=== PATIENT | female | born 1930 | race Caucasian/White ===

== ENCOUNTER 2019-05-05 04:44 | Inpatient (IN) | payer MEDICARE ==
[2019-05-05] VITALS (37 sets, daily range): BP systolic 105–164; BP diastolic 44–97
[~2019-05-05] VITALS: Ht 154.9 cm; Wt 58.1 kg
--- NOTE | 2019-05-05 04:55 | NUR ---
PT BIBDAUGHTER. PT C/O WEAKNESS X3 DAYS, PROGRESSIVELY GETTING WORSE AND FEELING SOB. -CP, -N/V, -HEADACHE. PT PLACED ON CONTINIOUS SUPERVISOR ENDLESS TRACK VEHICLE AND PULSE OX. UPON ASSESSMENT PT APPEARS WEAK AND IN DISTRESS. MD AT BEDSIDE FOR EVAL.
[2019-05-05] MEDS ORDERED: ADENOSINE 6 MG/2 ML VIAL ONE (05:03)
[2019-05-05] MEDS ORDERED: DILTIAZEM HCL 25 MG IV ONE (05:07)
[2019-05-05 05:11] LABS: BASOPHILS # (AUTO) 0.1 /CMM (0.0-0.2); BASOPHILS % (AUTO) 0.6 % (0.0-2.0); EOSINOPHILS % (AUTO) 2.3 % (0.0-6.0); HEMATOCRIT 35 % (33-45); HEMOGLOBIN 11.3 g/dL (11.5-14.8); LYMPHOCYTES # (AUTO) 2.3 /CMM (0.8-4.8); LYMPHOCYTES % (AUTO) 21.9 % (20.0-44.0); MEAN CORPUSCULAR HGB CONC 32 g/dl (31.0-36.0); MEAN CORPUSCULAR VOLUME 96 fL (82-100); MONOCYTES # (AUTO) 1.1 /CMM (0.1-1.30); MONOCYTES % (AUTO) 10.1 % (2.0-12.0); NEUTROPHILS # (AUTO) 6.8 /CMM (1.8-8.9); NEUTROPHILS % (AUTO) 65.1 % (43.0-81.0); PLATELET COUNT (AUTO) 239 /CMM (150-450); RED BLOOD CELL COUNT(AUTO) 3.64 MIL/uL (4.0-5.2); WHITE BLOOD COUNT (AUTO) 10.5 K/uL (4.3-11.0)
--- NOTE | 2019-05-05 05:11 | NUR ---
x. ray tech at the bed side
[2019-05-05 05:20] LABS: CALCIUM, SERUM 8.6 mg/dL (8.5-10.1); CARBON DIOXIDE 19 mmol/L (21-32); CHLORIDE 108 mmol/L (98-107); CREATININE 1.9 mg/dL (0.6-1.3); GLUCOSE 282 mg/dL (74-106); POTASSIUM 4.9 mmol/L (3.5-5.1); SODIUM SERUM 140 mmol/L (136-145); UREA NITROGEN, BLOOD 37 mg/dL (7-18)
[2019-05-05] MEDS ORDERED: ATEN25TA PO (05:22)
[2019-05-05] MEDS ORDERED: LEVO75TA7 PO (05:22)
[2019-05-05] MEDS ORDERED: GLIP5TAB13 PO (05:22)
[2019-05-05] MEDS ORDERED: WARF3TAB59 PO (05:22)
[2019-05-05] MEDS ORDERED: METF-440 PO (05:22)
[2019-05-05] MEDS ORDERED: LOSA100T31 PO (05:22)
[2019-05-05] MEDS ORDERED: SIMV-49 PO (05:22)
[2019-05-05] MEDS ORDERED: SITA50TA PO (05:22)
[2019-05-05] MEDS ORDERED: MIRT15TA PO (05:22)
[2019-05-05] MEDS ORDERED: PRED1TAB PO (05:22)
[2019-05-05] MEDS ORDERED: DILTIAZEM HCL 50 MG IV IV ONE (05:30)
[2019-05-05] MEDS ORDERED: DILTIAZEM HCL IV 125 MG in IV NS 0.9% 100 ML IV PRN (05:30)
[2019-05-05] MEDS ORDERED: IV NS 0.9% 1,000 ML BAG IV ONE (05:30)
[2019-05-05] MEDS ORDERED: ADENOSINE 6 MG/2 ML VIAL IVP ONE (05:30)
[2019-05-05 05:37] LABS: ALANINE AMINOTRANSFERASE 75 U/L (12-78); ALBUMIN 3.2 g/dL (3.4-5.0); ALKALINE PHOSPHATASE 65 U/L (46-116); ASPARTATE AMINOTRANSFERASE 43 U/L (15-37); B-TYPE NATRIURETIC PEPTIDE 5086 PG/ML (0-125); BILIRUBIN,DIRECT 0.1 mg/dL (0.0-0.2); BILIRUBIN,TOTAL 0.3 mg/dL (0.2-1.0); TOTAL PROTEIN, SERUM 6.4 g/dL (6.4-8.2)
--- NOTE | 2019-05-05 05:50 | NUR ---
URINE COLLECTED AND SENT TO THE LAB
[2019-05-05 05:51] LABS: APPEARANCE,URINE Clear (CLEAR); BILIRUBIN,URINE Negative (NEGATIVE); BLOOD, URINE Small Ery/uL (NEGATIVE); COLOR,URINE Yellow (YELLOW); KETONES,URINE Negative (NEGATIVE); LEUKOCYTE ESTERASE ,URINE Negative (NEGATIVE); NITRITE, URINE Negative (NEGATIVE); PH,URINE 5.5 (5.0-8.0); PROTEIN,URINE 100 mg/dl (NEGATIVE); UGLUCOSE 250 MG/DL mg/dL (NEGATIVE)
[2019-05-05 05:58] LABS: BACTERIA,URINE Few /HPF (None Seen); WBC,URINE 0-2 /HPF (0-3)
--- NOTE | 2019-05-05 06:09 | NUR ---
BED ASSIGNMENT 117-2
--- NOTE | 2019-05-05 06:15 | NUR ---
REPORT GIVEN TO KLARISSA OROURKE FOR RICKY
--- NOTE | 2019-05-05 06:38 | NUR ---
PT TRANSFERED TO REGULO FOR RICKY UNDER ACLS PROTOCOL.
--- NOTE | 2019-05-05 06:40 | NUR ---
0640 ADMITTED FROM ER 88 YEAR OLD FEMALE VIA BRADY, KIRIT X 2 . ON O2 AT 2 LPM VIA NC. ASSISTED TO REGULO BED AND CONNECTED TO HEART MONITOR, NSR NOTED WITH HR IN THE 80S. ADMISSION CARE RENDERED. VITAL SIGNS TAKEN AND RECORDED. PATIENT DENIES PAIN WHEN ASKED. DAUGHTER MANE TAYLOR AT BEDSIDE AND PROVIDED CONTACT NUMBER [phone]. KEPT PATIENT CLEAN AND DRY. CALL LIGHT PLACED WITHIN REACH AND INSTRUCTED TO CALL FOR ASSISTANCE.
--- NOTE | 2019-05-05 07:30 | NUR ---
RN OPENING NOTES RECEIVED PATIENT ASLEEP, EASILY AROUSABLE. ON TELE MONITOR, SR AT 80s. AT 0730, COAT ROOM ATTENDANT REPORTED THAT PATIENT ON SVT AT 180s. WENT TO PATIENT'S ROOM. PATIENT TRYING TO GET UP AND WAS FRANTIC ABOUT WHAT IS HAPPENING AND WHERE SHE IS. TRIED TO CALM PATIENT DOWN BUT PATIENT SEEMS TO HAVE HARD OF HEARING AND TRYING TO READ LIPS. CALLED MANE, PATIENT'S DAUGHTER, SHE TALKED TO THE PATIENT AND WAS TOLD TO DO EVERYTHING WE HAVE TO DO FOR HER, SUCH CHECKING VS. PATIENT AGREED. VS CHECKED. PATIENT AWARE OF HER SURROUNDINGS, TURNED TV ON. CALL LIGHT WITHIN REACH. PER COAT ROOM ATTENDANT, PATIENT IS CURRENTLY AFIB AT 132. DR MCCALL MADE AWARE, NNO AT THIS TIME. BED LOCKED AND IN LOWEST POSITION. WILL CONTINUE TO MONITOR CLOSELY FOR RICKY
--- NOTE | 2019-05-05 08:30 | NUR ---
RN NOTE PATIENT REMOVED HER IV SITE. WILL REINSERT ANOTHER ONE
[2019-05-05] MEDS ORDERED: Z GUARD REMEDY 2 OZ OINT TP PRN (09:00)
[2019-05-05] MEDS ORDERED: METFORMIN 500 MG TABLET PO SCH (09:00)
[2019-05-05] MEDS ORDERED: MAG HYDROX/AL HYDROX/SIMETH 30 ML UDC PO PRN (09:00)
[2019-05-05] MEDS ORDERED: LOSARTAN POTASSIUM 50 MG TABLET PO SCH (09:00)
[2019-05-05] MEDS ORDERED: ATENOLOL 25 MG TABLET PO SCH (09:00)
[2019-05-05] MEDS ORDERED: HYDROCODONE/APAP 5/325MG 1 EACH TABLET PO PRN (09:00)
[2019-05-05] MEDS ORDERED: ACETAMINOPHEN 325 MG TABLET PO PRN (09:00)
[2019-05-05] MEDS ORDERED: LEVOTHYROXINE SODIUM 75 MCG TABLET PO SCH (09:00)
[2019-05-05] MEDS ORDERED: MAGNESIUM HYDROXIDE 30 ML UDC PO PRN (09:00)
[2019-05-05] MEDS ORDERED: Medication Not On Formulary EA (Warfarin Sodium 3 MG) PO SCH (09:00)
[2019-05-05] MEDS ORDERED: ZOLPIDEM TARTRATE 5 MG TABLET PO PRN (09:00)
[2019-05-05] MEDS ORDERED: DEXTROSE 50%-WATER 50 ML DISP.SYRIN IV PRN (09:00)
[2019-05-05] MEDS ORDERED: ONDANSETRON HCL/PF 4 MG/2 ML VIAL IVP PRN (09:00)
[2019-05-05] MEDS: LINAGLIPTIN 5 MG TABLET PO SCH (09:39)
[2019-05-05] MEDS: glipiZIDE 5 MG TABLET PO SCH (09:39)
[2019-05-05] MEDS: IV NS 0.9% 1,000 ML IV PRN (09:39)
[2019-05-05] MEDS: predniSONE 1 MG TABLET PO SCH (09:40)
--- NOTE | 2019-05-05 10:02 | NUR ---
RN NOTE DAUGHTER MANE AT BEDSIDE, ADVANCE DIRECTIVES GIVEN, PLACED IN CHART. PATIENT'S CODE STATUS IS DNR/DNI. DR MCCALL MADE AWARE. PER DR LUNDBERG, GET ALL COPIES OF RECENT EKG AND NOTES FROM THE PATIENT'S PERSONAL [facility] CONSULTANT - DR GONZALES. CALLED AND FAXED OVER THE REQUEST FORM SIGNED BY DAUGHTER.
--- NOTE | 2019-05-05 10:20 | NUR ---
RN NOTE PER DR LUNDBERG, HE ORDERED CARDIZEM DRIP FOR PATIENT. EKG RESULTS RELAYED TO MD WELL.
--- NOTE | 2019-05-05 11:00 | NUR ---
RN NOTES RECEIVED PT ON BED IN ROOM 117-2, AND TRANSFERRED TO ICU ROOM 261 TO HAVE XANDER GTT PER AD CLERK ORDER , PT IS A/Ox1-2, CONFUSED AT TIMES, ON TELE A.FIB HR IN 130'S , R UPPER ARM IV G 20 AND L WIRST IV G 22 INSERTED, SUPPORTIVE DAUGHTER AT THE BEDSIDE, SR UP X3, CALL LIGHT WITHIN EASY REACH, BED LOCKED AND IN LOWEST POSITION, CONTINUE TO MONITOR.
--- NOTE | 2019-05-05 11:30 | NUR ---
RN NOTE PATIENT TRANSFERRED TO ICU VIA ACLS. VSS, HR ELEVATED - 130s. PATIENT WILL BE ON CARDIZEM DRIP TITRATION PER DR LUNDBERG. REPORT GIVEN TO VIDA MALDONADO FOR RICKY. DAUGHTER AWARE, AT BEDSIDE. NEW IV SITE ON RIGHT AC. DR MCCALL AWARE OF THE TRANSFER
[2019-05-05] MEDS: DILTIAZEM HCL IV 125 MG in IV D5W 100 ML IV PRN (12:20)
[2019-05-05] MEDS: BLOOD SUGAR DIAGNOSTIC 1 EACH STRIP IN SCH ×3 (12:23→22:57)
[2019-05-05] MEDS: INSULIN REGULAR, HUMAN 100 UNIT/ML 3 ML VIAL SQ PRN ×2 (12:23→17:51)
[2019-05-05] MEDS ORDERED: HEPARIN SODIUM, PORCINE 5000 UNITS/1 ML VIAL SQ SCH (12:30)
[2019-05-05] MEDS ORDERED: TEMAZEPAM 7.5 MG CAPSULE PO PRN (13:00)
[2019-05-05] MEDS ORDERED: LEVOTHYROXINE INJ 100 MCG VIAL IV ONE (13:00)
[2019-05-05] MEDS: METHIMAZOLE (5MG) 5 MG TABLET PO SCH ×2 (13:14→21:46)
[2019-05-05] MEDS: PROPRANOLOL HCL 40 MG TABLET PO SCH ×2 (14:16→21:46)
--- NOTE | 2019-05-05 15:53 | NUR ---
RN NOTES PT STABLE, HR IN 90'S . A.FIB, FAMILY AT THE BEDSIDE, CONTINUE TO MONITOR .
--- NOTE | 2019-05-05 18:00 | NUR ---
RN NOTES PT IS CONFUSED AND AGITATED, PULLING ON HER IV LINES AND TRIES TO GET OUT OF THE BED , PT REORIENTED TO ROOM AND SURROUNDING, PT STILL AGITATED , TAYLOR CARBONIZER TESTER NOTIFIED , ORDER RECEIVED TO APPLY YOSEF SOFT RESTRAINS FOR PT SAFETY AND SEROQUEL 25x1 PO . CONTINUE TO MONITOR .
[2019-05-05] MEDS ORDERED: QUETIAPINE FUMARATE 25 MG TABLET PO STA (18:11)
--- NOTE | 2019-05-05 18:45 | NUR ---
RN NOTES PT AT REST AT THIS TIME, DAUGHTER AT THE BEDSIDE. HR IN 80' A.FIB. SR UP x3, CALL LIGHT WITHIN EASY REACH, WILL ENDORSE TO JAMB CUTTER NURSE FOR CONTINUITY OF CARE .
--- NOTE | 2019-05-05 19:30 | NUR ---
RN NOTES RECEIVED PATIENT AWAKE ON BED CALM AND SMILING . LOOKING FOR HER DAUGHTER MANE AND WANTED TO GET UP. EDUCATE PATIENT ABOUT THE TIME AND SURROUNDING. PATIENT IS AOX2 WITH CONFUSION. WITH O2 2LPM VIA NC BUT REMOVED AND DOESN'T WANT TO PUT IT BACK ON HER NOSE. SATURATION 97% IN ROOM AIR. DENIES PAIN. DENIES CHEST PAIN. AFEBRILE. A- FIB ON TELE MONITOR. WITH IV ON ERICA G 20 RUNNING WITH CARDIZEM @ 5 MG/HR. VSS. LEFT HAND G 22 INTACT AND PATENT. BED LOCKED AND SECURED. SAFETY MEASURES PROVIDED. BED ALARM ON. CALL LIGHT KEPT WITHIN EASY REACH WILL CONTINUE TO MONITOR.
[2019-05-05] MEDS: ATORVASTATIN 10 MG TABLET PO SCH (21:46)
[2019-05-05] MEDS: MIRTAZAPINE 15 MG TABLET PO SCH (21:47)
[2019-05-05] MEDS ORDERED: SIMVASTATIN 40 MG TABLET PO SCH (22:00)
[2019-05-06] VITALS (42 sets, daily range): BP systolic 89–172; BP diastolic 31–97
[2019-05-06 04:32] LABS: BASOPHILS % (AUTO) 0.6 % (0.0-2.0); EOSINOPHILS % (AUTO) 4.2 % (0.0-6.0); HEMATOCRIT 30 % (33-45); HEMOGLOBIN 9.8 g/dL (11.5-14.8); LYMPHOCYTES # (AUTO) 1.1 /CMM (0.8-4.8); LYMPHOCYTES % (AUTO) 20.1 % (20.0-44.0); MEAN CORPUSCULAR HGB CONC 33 g/dl (31.0-36.0); MEAN CORPUSCULAR VOLUME 94 fL (82-100); MONOCYTES # (AUTO) 0.8 /CMM (0.1-1.30); NEUTROPHILS # (AUTO) 3.3 /CMM (1.8-8.9); NEUTROPHILS % (AUTO) 61.1 % (43.0-81.0); PLATELET COUNT (AUTO) 163 /CMM (150-450); RED BLOOD CELL COUNT(AUTO) 3.15 MIL/uL (4.0-5.2); WHITE BLOOD COUNT (AUTO) 5.5 K/uL (4.3-11.0)
--- NOTE | 2019-05-06 04:35 | NUR ---
RN NOTES HELD XANDER ROYAL AT THIS TIME 04:30 BP 89/31 RECHECKED 04:32 BP 98/68. PATIETN ASLEEP AT THIS TIME. WILL CONTINUE TO MONITOR.
[2019-05-06 04:47] LABS: CALCIUM, SERUM 8.1 mg/dL (8.5-10.1); CREATININE 1.3 mg/dL (0.6-1.3); MAGNESIUM 1.5 mg/dL (1.8-2.4); PHOSPHORUS 3.3 mg/dL (2.5-4.9); POTASSIUM 4.2 mmol/L (3.5-5.1)
[2019-05-06 05:22] LABS: THYROID STIMULATING HORMONE 18.091 uIU/mL (0.358-3.74)
[2019-05-06] MEDS: METHIMAZOLE (5MG) 5 MG TABLET PO SCH (05:25)
[2019-05-06] MEDS: IV NS 0.9% 1,000 ML IV PRN (05:32)
--- NOTE | 2019-05-06 06:10 | NUR ---
RN NOTES NOTED PATIENT HR WENT UP TO 112 SBP GOING UP TO 150'S, RESTARTED CARDIZEM DRIP @ 5MG/HR CONTINUE ON IVF NS @ 50 ML/HR IV SITE INTACT AND PATENT. NO SIGNIFICANT CHANGE OF CONDITION THROUGHOUT THE SHIFT. PATIENT ASLEEP WELL WILL ENDORSED CONTINUITY OF CARE TO AM NURSE.
--- NOTE | 2019-05-06 07:00 | NUR ---
RN NOTES S/E BY DR. LUNDBERG UPDATED ABOUT HE PATIENT STATUS. PT ASLEEP AT THIS TIME. NO ACUTE RESPIRATORY DISTRESS SATURATION 97%. REMAINED A-FIB ON TELE MONITOR. CARDIZEM DRIP ONGOING TITRATED ORDERED. ALL DUE MEDICINE ADMINISTERED ORDERED. KEPT PT CLEAN AND DRY. ENDORSED CONTINUITY OF CARE TO AM NURSE
--- NOTE | 2019-05-06 07:30 | NUR ---
ICU/RN: Pt received in bed, A&Ox2, pleasantly confused, follows commands, bilat lower extremity weakness. Oriented to unit and poc, verbalized understanding. IVF infusing well. On cardizem drip at 5mg/hr; A-fib 107-110 on monitor. Will cont to monitor pt.
[2019-05-06] MEDS: BLOOD SUGAR DIAGNOSTIC 1 EACH STRIP IN SCH ×4 (08:11→22:48)
[2019-05-06] MEDS: LINAGLIPTIN 5 MG TABLET PO SCH (08:55)
[2019-05-06] MEDS: predniSONE 1 MG TABLET PO SCH (08:56)
[2019-05-06] MEDS: PROPRANOLOL HCL 40 MG TABLET PO SCH ×2 (08:57→21:04)
[2019-05-06] MEDS: glipiZIDE 5 MG TABLET PO SCH (08:57)
--- NOTE | 2019-05-06 09:45 | NUR ---
ICU/RN: Dr Dallas at bedside for nephro consult. Case dw daughter extensively at bedside.
[2019-05-06] MEDS: DILTIAZEM HCL IV 125 MG in IV D5W 100 ML IV PRN (10:28)
[2019-05-06] MEDS: LEVOTHYROXINE SODIUM 88 MCG TABLET PO SCH (10:30)
[2019-05-06] MEDS: Magnesium 1GM/D5W 100ML PREMIX 100 ML IV SCH ×2 (11:24→12:37)
--- NOTE | 2019-05-06 12:00 | NUR ---
ICU/RN: Dr Lopez at bedside; updated on pt status. Informed of ongoing titration of Cardizem drip from 5 to 15mg/hr due to HR in 130's. No new orders.
--- NOTE | 2019-05-06 12:15 | NUR ---
ICU/RN: Daughter at bedside; refuses insulin coverage; states "My mom's blood glucose is well controlled by her tradjenta, please don't give her insulin."
[2019-05-06] MEDS ORDERED: IV NS 0.9% 500 ML IV ONE (12:30)
[2019-05-06] MEDS ORDERED: QUETIAPINE FUMARATE 25 MG TABLET PO PRN (12:30)
--- NOTE | 2019-05-06 12:45 | NUR ---
ICU/RN: Pt s/b Jolene Roach NP; updated on pt status. Orders for NS 500ml bolus noted and carried out. Pt demonstrates good PO intake.
--- NOTE | 2019-05-06 15:00 | NUR ---
ICU/RN: Hygienic care rendered, pt tolerated well. Assists with turning and repositioning.
[2019-05-06] MEDS: INSULIN REGULAR, HUMAN 100 UNIT/ML 3 ML VIAL SQ PRN ×2 (17:24→22:50)
--- NOTE | 2019-05-06 19:00 | NUR ---
ICU/RN: Pt resting in bed, no distress noted. Bed alarm on, safety measures in place. Bedside report given to PM RN for RICKY.
--- NOTE | 2019-05-06 19:30 | NUR ---
RN NOTE: RECEIVED PT ON BED AWAKE AND ALERT TO SELF ONLY. NO APPARENT DISTRESS NOTED. DENIES PAIN AND DISCOMFORT AT THIS TIME. ON ROOM AIR, BREATHING EVEN AND UNLABORED WITH NORMAL RESPIRATIONS, SATURATING WELL. ON TELE MONITOR AFIB HR 108 BPM. IV ON RIGHT UPPER ARM #20 AND LEFT HAND #22 INTACT AND PATENT, ON CARDIZEM DRIP RUNNING AT 5ML/HR AND NS AT 50ML/HR. KEPT CLEAN, DRY AND COMFORTABLE. SIDE RAILS UP X2. BED ALARM ON. BED LOCKED AND IN LOWEST POSITION. WILL CONTINUE TO MONITOR PT.
[2019-05-06] MEDS: ATORVASTATIN 10 MG TABLET PO SCH (21:04)
[2019-05-06] MEDS: MIRTAZAPINE 15 MG TABLET PO SCH (21:05)
[2019-05-07] VITALS (34 sets, daily range): BP systolic 106–163; BP diastolic 36–107
[2019-05-07] MEDS: IV NS 0.9% 1,000 ML IV PRN (00:23)
[2019-05-07] MEDS: DILTIAZEM HCL IV 125 MG in IV D5W 100 ML IV PRN (03:40)
[2019-05-07 04:43] LABS: BASOPHILS % (AUTO) 0.5 % (0.0-2.0); EOSINOPHILS % (AUTO) 2.3 % (0.0-6.0); HEMATOCRIT 32 % (33-45); HEMOGLOBIN 10.3 g/dL (11.5-14.8); LYMPHOCYTES # (AUTO) 0.9 /CMM (0.8-4.8); LYMPHOCYTES % (AUTO) 10.2 % (20.0-44.0); MEAN CORPUSCULAR HGB CONC 33 g/dl (31.0-36.0); MEAN CORPUSCULAR VOLUME 94 fL (82-100); MONOCYTES # (AUTO) 0.9 /CMM (0.1-1.30); MONOCYTES % (AUTO) 10.3 % (2.0-12.0); NEUTROPHILS # (AUTO) 6.8 /CMM (1.8-8.9); NEUTROPHILS % (AUTO) 76.7 % (43.0-81.0); PLATELET COUNT (AUTO) 206 /CMM (150-450); RED BLOOD CELL COUNT(AUTO) 3.36 MIL/uL (4.0-5.2); WHITE BLOOD COUNT (AUTO) 8.8 K/uL (4.3-11.0)
[2019-05-07 04:59] LABS: ALBUMIN 3.1 g/dL (3.4-5.0); BILIRUBIN,TOTAL 0.5 mg/dL (0.2-1.0); CALCIUM, SERUM 8.2 mg/dL (8.5-10.1); CREATININE 1.2 mg/dL (0.6-1.3); PHOSPHORUS 3.1 mg/dL (2.5-4.9); POTASSIUM 4.1 mmol/L (3.5-5.1); TOTAL PROTEIN, SERUM 6.1 g/dL (6.4-8.2)
--- NOTE | 2019-05-07 05:30 | NUR ---
RN NOTE: PATIENT'S HR 120s-130s, CARDIZEM DRIP INCREASED PER PROTOCOL. WILL CONTINUE TO MONITOR PT.
--- NOTE | 2019-05-07 06:34 | NUR ---
RN NOTE: NO CHANGES NOTED THROUGHOUT THE SHIFT. PT ASLEEP AT THIS TIME. NO FACIAL GRIMACING OR ANY SIGNS OF PAIN OR DISCOMFORT NOTED. ON ROOM AIR, NO SOB. IV ON RIGHT UPPER ARM #20 WAS PULLED OUT, TRIED TO REINSERT ANOTHER LINE BUT PT BECAME AGITATED. IV ON LEFT HAND #22 INTACT AND PATENT, NO SIGNS/SYMPTOMS OF INFILTRATION NOTED, CARDIZEM DRIP TITRATED PER PROTOCOL. VITAL SIGNS STABLE. KEPT CLEAN, DRY AND COMFORTABLE. SAFETY AND FALL PRECAUTIONS OBSERVED AND MAINTAINED. WILL ENDORSE TO DAY SHIFT RN FOR CONTINUITY OF CARE.
--- NOTE | 2019-05-07 07:15 | NUR ---
ICU/RN: Pt received in bed, eyes closed, easily arousable, confused. Safety measures in place. A-fib 120's on monitor. Cardizem infusing as ordered.
[2019-05-07] MEDS ORDERED: DIGOXIN INJ 0.5 MG/2 ML AMPUL IV ONE ×3 (07:30→21:00)
[2019-05-07] MEDS: PROPRANOLOL HCL 40 MG TABLET PO SCH ×2 (08:10→21:39)
[2019-05-07] MEDS: LINAGLIPTIN 5 MG TABLET PO SCH (08:10)
[2019-05-07] MEDS: glipiZIDE 5 MG TABLET PO SCH (08:10)
[2019-05-07] MEDS: LEVOTHYROXINE SODIUM 88 MCG TABLET PO SCH (08:10)
[2019-05-07] MEDS: predniSONE 1 MG TABLET PO SCH (08:10)
[2019-05-07] MEDS: BLOOD SUGAR DIAGNOSTIC 1 EACH STRIP IN SCH ×4 (08:11→22:58)
[2019-05-07] MEDS ORDERED: QUETIAPINE FUMARATE 25 MG TABLET PO PRN (12:00)
[2019-05-07 12:25] LABS: PTH, INTACT 49 pg/mL (15-65)
--- NOTE | 2019-05-07 12:45 | NUR ---
ICU/RN: Jolene Roach, SENIOR SOFTWARE TEST ENGINEER rounds. Updated on pt status, pt more confused this am, unable to sleep last night. Good po intake and urine output. Per SENIOR SOFTWARE TEST ENGINEER, okay to downgrade to REGULO once steady rate of cardizem is achieved after 2nd digoxin dose. New orders noted and carried out.
[2019-05-07] MEDS ORDERED: DILTIAZEM HCL IV 125 MG in IV D5W 100 ML IV PRN (15:00)
--- NOTE | 2019-05-07 16:00 | NUR ---
ICU/RN: Dr Heart at bedside for cardiology f/u. Informed that pt is currently on and off cardizem drip, unable to state a controlled HR off cardizem drip. Case discussed by extensively with daughter and pt at bedside. cleared pt for downgrade to vinnie.
[2019-05-07] MEDS ORDERED: hydrALAZINE HCL IV 20 MG VIAL IV PRN (17:00)
--- NOTE | 2019-05-07 18:15 | NUR ---
ICU/RN: Pt transferred to REGULO 116-2 in stable condition with belongings, medications and chart. Cardizem drip ongoing. A-fib 80-110's on monitor. Daughter at bedside. Bedside report given to VIDA Maria for RICKY.
--- NOTE | 2019-05-07 18:20 | NUR ---
REG[facility]/RN NOTES RECEIVED PATIENT FROM ICU. PATIENT WAS ACCOMPANIED BY ICU NURSE AND DAUGHTER. PATIENT IN BED, AWAKE, ALERT AND ABLE TO MAKE NEEDS KNOWN. PATIENT ON TELE MONITORING AFIB AROUND 90S. PATIENT NOTED WITH IV ACCESS ON L HAND #22G AND R FA #22G. INTACT AND PATENT. FLUSHING WELL. NO S/S OF INFECTION OR INFILTRATION. ALL NEEDS ANTICIPATED. CALL LIGHT WITHIN REACHED. BED LOCKED AND IN LOWEST POSITION. SAFETY MAINTAINED. PLAN OF CARE DISCUSSED. WILL CONTINUE TO MONITOR CLOSELY.
--- NOTE | 2019-05-07 19:13 | NUR ---
REG[facility]O/RN CLOSING NOTES PATIENT CONTINUES TO REMAIN IN STABLE CONDITION. PROVIDED COMFORT AND SAFETY. PATIENT ON TELE MONITORING AFIB AROUND 80S. ALL NEEDS ANTICIPATED. CALL LIGHT WITHIN REACHED. BED LOCKED AND IN LOWEST POSITION. SAFETY MAINTAINED. PLAN OF CARE DISCUSSED. WILL CONTINUE TO MONITOR CLOSELY. ENDORSED TO PM NURSE FOR RICKY.
--- NOTE | 2019-05-07 19:25 | NUR ---
TELE/TD NOTES PATIENT IN BED, RESTING COMFORTABLY AT THIS TIME, NO S/S OF ACUTE DISTRESS NOTED, RESPIRATION EVEN AND UNLABORED, NO SOB NOTED, PATIENT ALERT AND ORIENTED X 1-2, DENIES ANY PAIN. PATIENT ON TELE MONITORING WITH A-FIB. MD AWARE ON CARDIZEM DRIPS ORDERED. IV SITES WITH NO S/S OF INFECTION INFILTRATION, FLUSHED WITH NS. CLEAN AND DRY. SAFETY MAINTAINED, BED AT THE LOWEST LOCKED POSITION. CALL LIGHT WITHIN REACH.. WILL CONTINUE TO MONITOR PER PLAN OF CARE.
[2019-05-07] MEDS: MIRTAZAPINE 15 MG TABLET PO SCH (21:39)
[2019-05-07] MEDS: ATORVASTATIN 10 MG TABLET PO SCH (21:42)
[2019-05-07] MEDS: INSULIN REGULAR, HUMAN 100 UNIT/ML 3 ML VIAL SQ PRN (23:01)
[2019-05-08] VITALS (7 sets, daily range): BP systolic 133–162; BP diastolic 61–94
[2019-05-08 06:29] LABS: BASOPHILS % (AUTO) 0.4 % (0.0-2.0); EOSINOPHILS % (AUTO) 2.7 % (0.0-6.0); HEMATOCRIT 31 % (33-45); HEMOGLOBIN 10.4 g/dL (11.5-14.8); MEAN CORPUSCULAR HGB CONC 33 g/dl (31.0-36.0); MEAN CORPUSCULAR VOLUME 93 fL (82-100); MONOCYTES # (AUTO) 0.9 /CMM (0.1-1.30); MONOCYTES % (AUTO) 14.7 % (2.0-12.0); NEUTROPHILS # (AUTO) 3.8 /CMM (1.8-8.9); NEUTROPHILS % (AUTO) 65.2 % (43.0-81.0); PLATELET COUNT (AUTO) 203 /CMM (150-450); WHITE BLOOD COUNT (AUTO) 5.9 K/uL (4.3-11.0)
[2019-05-08 06:50] LABS: CALCIUM, SERUM 8.4 mg/dL (8.5-10.1); MAGNESIUM 1.7 mg/dL (1.8-2.4); PHOSPHORUS 2.8 mg/dL (2.5-4.9); POTASSIUM 3.9 mmol/L (3.5-5.1)
--- NOTE | 2019-05-08 06:54 | NUR ---
TELE/TD NOTES PATIENT REAMIED IN BED, SLEEPING COMFORTABLY AT THIS TIME, EASILY AROUSABLE, NO S/S OF ACUTE DISTRESS NOTED, RESPIRATION EVEN AND UNLABORED, NO SOB NOTED, PATIENT ALERT AND ORIENTED X 1, DENIES ANY PAIN. PATIENT ON TELE MONITORING WITH A-FIB, CONTROLLED, WITH PVC'S. MD AWARE ON CARDIZEM DRIPS ORDERED. IV SITES WITH NO S/S OF INFECTION INFILTRATION, FLUSHED WITH NS. CLEAN AND DRY. ALL DUE MEDS GIVEN ORDERED, TOLERATED WELL. SAFETY MAINTAINED, BED AT THE LOWEST LOCKED POSITION. CALL LIGHT WITHIN REACH.. WILL ENDORSE TO AM SHIFT NURSE FOR RICKY.
--- NOTE | 2019-05-08 07:13 | NUR ---
RN NOTE: RECEIVED PATIENT ON BED ASLEEP BUT AWAKEN BY VERBAL STIMULI. A/OX1. NOT ON ANY FORM OF DISTRESS NOTED. ON ROOM AIR, BREATHING EVEN AND UNLABORED, SATURATING WELL. NO COMPLAINTS OF PAIN OFF ANY KIND. AFIB ON THE MONITOR WITH HR ON THE 70'S. IV ACCESS ON THE LEFT HAND #22, IN PLACE AND INTACT, PATENT ON FLUSHING, WITH ONGOING CARDIZEM DRIP RUNNING AT 5ML/HR,. SAFETY MEASURES OBSERVED AND EENSURED IN PLACE. SIDE RAILS UP X2. BED ALARM ON. BED LOCKED AND IN LOWEST POSITION. WILL CONTINUE TO MONITOR PATIENT AND ANTICIPATE NEEDS.
[2019-05-08] MEDS: BLOOD SUGAR DIAGNOSTIC 1 EACH STRIP IN SCH ×4 (08:34→21:51)
[2019-05-08] MEDS: glipiZIDE 5 MG TABLET PO SCH (08:35)
[2019-05-08] MEDS: LEVOTHYROXINE SODIUM 88 MCG TABLET PO SCH (08:35)
[2019-05-08] MEDS: LINAGLIPTIN 5 MG TABLET PO SCH (08:35)
[2019-05-08] MEDS: PROPRANOLOL HCL 40 MG TABLET PO SCH ×2 (08:36→21:51)
[2019-05-08] MEDS: predniSONE 1 MG TABLET PO SCH (08:36)
[2019-05-08] MEDS ORDERED: MAGNESIUM OXIDE 400 MG TABLET PO ONE (09:00)
[2019-05-08] MEDS: DIGOXIN 0.125 MG TABLET PO SCH (12:43)
[2019-05-08] MEDS ORDERED: DIGOXIN ELIX UDC 0.25 MG/5 ML UDC PO SCH (13:00)
[2019-05-08] MEDS ORDERED: WARFARIN SODIUM 2 MG TABLET PO SCH (17:00)
--- NOTE | 2019-05-08 17:00 | NUR ---
RN NOTES PAGED DR. MCCALL TO ASK ABOUT CONTINUING METFORMIN 500MG BID, DAUGHTER AT BEDSIDE IS HESITANT ABOUT MOM GETTING INSULIN. AWAITING CALL BACK
[2019-05-08] MEDS: INSULIN REGULAR, HUMAN 100 UNIT/ML 3 ML VIAL SQ PRN ×2 (18:00→21:58)
--- NOTE | 2019-05-08 19:18 | NUR ---
RN NOTES ENDORSED FOR CONTINUITY OF CARE. NOT ON ANY FORM OF DISTRESS. NO INDICATION OF PAIN NOTED AT THIS TIME. SAFETY MEASURE IN PLACE AT ALL TIMES. CALL LIGHT WITHIN REACH
[2019-05-08] MEDS: ATORVASTATIN 10 MG TABLET PO SCH (21:50)
[2019-05-08] MEDS: MIRTAZAPINE 15 MG TABLET PO SCH (21:51)
[2019-05-09] VITALS: BP 113/59
[2019-05-09 04:00] VITALS: BP 114/47
[2019-05-09 07:54] LABS: CALCIUM, SERUM 8.9 mg/dL (8.5-10.1); MAGNESIUM 1.7 mg/dL (1.8-2.4); PHOSPHORUS 3.1 mg/dL (2.5-4.9)
[2019-05-09 08:00] VITALS: BP 192/74
[2019-05-09] MEDS ORDERED: QUET25TA PO (08:00)
[2019-05-09] MEDS ORDERED: WARF2TAB57 PO (08:00)
--- NOTE | 2019-05-09 08:00 | NUR ---
TD/RN AM SHIFT INITIAL NOTES RECEIVED PT AWAKE SITTING IN BED, PT A/O X 2, DENIES ANY SYMPTOMS. NO ACUTE CHANGE OF CONDITION NOTED. ON ROOM AIR SATURATING @ 94%, RESPIRATIONS EVEN & UNLABORED, LUNG SOUNDS CLEAR. ON TELE WITH CONTROLLED A-FIB, HR 83. IV SITE FLUSHED, PATENT WITH NO S/S OF INFECTION, SL. BLOOD GLUCOSE CHECKED, RESULT 89, NO S/S OF HYPER OR HYPOGLYCEMIA. NOTED WITH HIGH BLOOD PRESSURE, BP 192/74, DENIES ANY SYMPTOMS, PT HAS SCHEDULED BP MEDS. PT IS COMFORTABLE, SCHEDULED AM MEDS TO BE GIVEN. CL WITHIN REACHED AND SAFETY MAINTAINED. ON GOING MONITORING.
[2019-05-09] MEDS: BLOOD SUGAR DIAGNOSTIC 1 EACH STRIP IN SCH ×2 (08:08→12:34)
[2019-05-09 08:10] LABS: BASOPHILS % (AUTO) 0.7 % (0.0-2.0); EOSINOPHILS % (AUTO) 4.8 % (0.0-6.0); HEMATOCRIT 38 % (33-45); HEMOGLOBIN 12.1 g/dL (11.5-14.8); LYMPHOCYTES # (AUTO) 1.3 /CMM (0.8-4.8); MEAN CORPUSCULAR HGB CONC 32 g/dl (31.0-36.0); MEAN CORPUSCULAR VOLUME 93 fL (82-100); MONOCYTES % (AUTO) 14.8 % (2.0-12.0); NEUTROPHILS % (AUTO) 59.7 % (43.0-81.0); PLATELET COUNT (AUTO) 214 /CMM (150-450); RED BLOOD CELL COUNT(AUTO) 4.03 MIL/uL (4.0-5.2); WHITE BLOOD COUNT (AUTO) 6.7 K/uL (4.3-11.0)
[2019-05-09] MEDS: LEVOTHYROXINE SODIUM 88 MCG TABLET PO SCH (09:11)
[2019-05-09] MEDS: predniSONE 1 MG TABLET PO SCH (09:11)
[2019-05-09] MEDS: glipiZIDE 5 MG TABLET PO SCH (09:11)
[2019-05-09] MEDS: LINAGLIPTIN 5 MG TABLET PO SCH (09:11)
[2019-05-09] MEDS: PROPRANOLOL HCL 40 MG TABLET PO SCH (09:11)
[2019-05-09 10:15] VITALS: BP 154/52
[2019-05-09] MEDS: Magnesium 1GM/D5W 100ML PREMIX 100 ML IV SCH ×2 (10:15→12:08)
--- NOTE | 2019-05-09 10:15 | NUR ---
TD/RN BP RE-CHECKED BP CHECKED, DECREASED 154/52. MONITORING CONTINUED.
[2019-05-09] MEDS ORDERED: MAGNESIUM OXIDE 400 MG TABLET PO ONE (11:00)
--- NOTE | 2019-05-09 11:00 | NUR ---
TD/RN ROUNDS - ROSMERY VAZQUEZ. UPDATED PT'S CONDITION. PT SEEN & EXAMINED [place] ROSMERY VAZQUEZ. NO NEW ORDER RECIVED AT THIS TIME. MONITORING CONTINUED.
[2019-05-09] MEDS ORDERED: Digoxin PO (11:09)
[2019-05-09] MEDS ORDERED: Levothyroxine Sodium PO (11:09)
[2019-05-09] MEDS ORDERED: PROP40TA7 PO (11:09)
[2019-05-09] MEDS ORDERED: ATOR10TA PO (11:09)
[2019-05-09 12:00] VITALS: BP 175/68
[2019-05-09] MEDS: DIGOXIN 0.125 MG TABLET PO SCH (12:34)
[2019-05-09] MEDS: INSULIN REGULAR, HUMAN 100 UNIT/ML 3 ML VIAL SQ PRN (12:36)
[2019-05-09 13:09] VITALS: BP 175/68
--- NOTE | 2019-05-09 14:00 | NUR ---
TD/DIRECTOR BUSINESS TRAVEL - HOME DISCHARGE INSTRUCTIONS, DOCUMENTS AND PRESCRIPTION GIVEN TO PT'S DAUGHTER, VERBALIZED UNDERSTANDING. PRESCRIPTION WERE FAXED TO PT'S PREFERRED PHARMACY AND WERE ACKNOWLEDGED. PERSONAL BELONGINGS RETURNED TO PT, INVENTORY LOG SIGNED OFF. IV SITES REMOVED, PRESSURE DRESSING APPLIED, NO S/S OF INFECTION. ID BAND REMOVED WELL. PT LEFT REGULO UNIT VIA WHEELCHAIR IN STABLE CONDITION, ACCOMPANIED BY PT'S DAUGHTER AND HEALTH AND WELLNESS ADVISOR TO AN AWAITING PRIVATE CAR BY THE HOSPITAL LOBBY.
[2019-05-10 11:07] LABS: *SPE A/G RATIO 1.5 (0.7-1.7); *SPE ALBUMIN 3.1 g/dL (2.9-4.4); *SPE ALPHA-1-GLOBULIN 0.2 g/dL (0.0-0.4); *SPE ALPHA-2-GLOBULIN 0.6 g/dL (0.4-1.0); *SPE BETA GLOBULIN 0.8 g/dL (0.7-1.3); *SPE GLOBULIN, TOTAL 2.1 g/dL (2.2-3.9); *SPE M-SPIKE Not Observed g/dL (Not Observed); *SPEGAMMA GLOBULIN 0.5 g/dL (0.4-1.8)
== END 2019-05-09 14:02 | disposition home or self-care (01) | DRG 682 ==
LOC: ER 04:45 → TELE 06:06 → TELE1 06:10 → TELE-TD 10:23 → ICU 11:04 → TELE-TD 05-07 18:06
PROVIDERS: ADMIT Nurse Practitioner Acute Care; ATTEND Nurse Practitioner Acute Care
DX: N17.0 Acute kidney failure with tubular necrosis (principal); G92 Toxic encephalopathy; E44.1 Mild protein-calorie malnutrition; D68.59 Other primary thrombophilia; N39.0 Urinary tract infection, site not specified; D63.8 Anemia in other chronic diseases classified elsewhere; I48.91 Unspecified atrial fibrillation; Z90.49 Acquired absence of other specified parts of digestive tract; Z79.01 Long term (current) use of anticoagulants; Z79.84 Long term (current) use of oral hypoglycemic drugs; Z79.899 Other long term (current) drug therapy; Z95.0 Presence of cardiac pacemaker; Z66 Do not resuscitate; E78.5 Hyperlipidemia, unspecified; M35.3 Polymyalgia rheumatica; I10 Essential (primary) hypertension; E86.0 Dehydration; E05.90 Thyrotoxicosis, unspecified without thyrotoxic crisis or storm; E11.65 Type 2 diabetes mellitus with hyperglycemia
CPT/HCPCS: 36415; 71045-TC; 76770-TC; 80048-TC; 80053-TC; 80061-TC; 80076-TC; 81000-TC; 82550-TC; 82962-TC; 83735-TC; 83880; 83970; 84100-TC; 84155; 84165; 84439-TC; 84443-TC; 84481; 84484-TC; 85025-TC; 85610-TC; 85730-TC; 87081-TC; 87086-TC; 93307-TC; 97116-TC; 97530-TC; G0378; J0153; J0360; J1160; J1815; J3475; J3490; J7030; J7040; J7050; J7060; J7512

== ENCOUNTER 2019-05-20 15:56 | Inpatient (IN) | payer MEDICARE ==
[~2019-05-20] VITALS: Ht 154.9 cm; Wt 51.7 kg
[2019-05-20] VITALS (8 sets, daily range): BP systolic 97–166; BP diastolic 66–78
[~2019-05-20 15:56] MED LIST: ATOR10TA PO; Digoxin PO; GLIP5TAB13 PO; LOSA100T31 PO; Levothyroxine Sodium PO; METF-440 PO; MIRT15TA PO; PRED1TAB PO; PROP40TA7 PO; QUET25TA PO; SIMV-49 PO; SITA50TA PO; WARF2TAB57 PO
--- NOTE | 2019-05-20 16:10 | NUR ---
"bibdaughter, sent by PMD due to abd pain and tachycardia since this morning" pt awake, alert, -sob, nadn oted, vss ,pending md hammer
[2019-05-20] MEDS ORDERED: ATEN25TA PO (16:14)
[2019-05-20] MEDS ORDERED: ONDANSETRON HCL/PF 4 MG/2 ML VIAL IVP ONE (16:30)
[2019-05-20] MEDS ORDERED: IV NS 0.9% 1,000 ML BAG IV ONE ×2 (16:30)
[2019-05-20] MEDS ORDERED: DILTIAZEM HCL 50 MG IV IV ONE ×2 (16:30→17:30)
[2019-05-20] MEDS ORDERED: DILTIAZEM HCL 25 MG IV ONE ×2 (16:31→17:14)
[2019-05-20] MEDS ORDERED: ONDANSETRON HCL/PF 4 MG/2 ML VIAL ONE (16:31)
[2019-05-20 16:37] LABS: BASOPHILS # (AUTO) 0.1 /CMM (0.0-0.2); BASOPHILS % (AUTO) 0.4 % (0.0-2.0); HEMATOCRIT 36 % (33-45); HEMOGLOBIN 11.4 g/dL (11.5-14.8); LYMPHOCYTES # (AUTO) 0.6 /CMM (0.8-4.8); MEAN CORPUSCULAR HGB CONC 31 g/dl (31.0-36.0); MEAN CORPUSCULAR VOLUME 94 fL (82-100); MONOCYTES # (AUTO) 1.1 /CMM (0.1-1.30); MONOCYTES % (AUTO) 7.5 % (2.0-12.0); NEUTROPHILS # (AUTO) 13.4 /CMM (1.8-8.9); NEUTROPHILS % (AUTO) 88.1 % (43.0-81.0); PLATELET COUNT (AUTO) 302 /CMM (150-450); RED BLOOD CELL COUNT(AUTO) 3.89 MIL/uL (4.0-5.2); WHITE BLOOD COUNT (AUTO) 15.3 K/uL (4.3-11.0)
[2019-05-20 16:50] LABS: BILIRUBIN,DIRECT 0.2 mg/dL (0.0-0.2); BILIRUBIN,TOTAL 0.9 mg/dL (0.2-1.0); CALCIUM, SERUM 9.5 mg/dL (8.5-10.1); CREATININE 1.2 mg/dL (0.6-1.3); POTASSIUM 3.8 mmol/L (3.5-5.1); TOTAL PROTEIN, SERUM 8.1 g/dL (6.4-8.2)
[2019-05-20] MEDS ORDERED: INSULIN REGULAR, HUMAN 100 UNIT/ML 10 ML VIAL SQ ONE (17:00)
[2019-05-20 17:02] LABS: APPEARANCE,URINE Clear (CLEAR); BILIRUBIN,URINE Negative (NEGATIVE); BLOOD, URINE Small Ery/uL (NEGATIVE); COLOR,URINE Yellow (YELLOW); KETONES,URINE 80 (NEGATIVE); LEUKOCYTE ESTERASE ,URINE Negative (NEGATIVE); NITRITE, URINE Negative (NEGATIVE); PROTEIN,URINE >=300 mg/dl (NEGATIVE); UGLUCOSE 500 MG/DL mg/dL (NEGATIVE); UROBILINOGEN,URINE 0.2 EU/dL (0.2)
[2019-05-20] MEDS ORDERED: INSULIN REGULAR, HUMAN 100 UNIT/ML 10 ML VIAL ONE (17:02)
[2019-05-20 17:20] LABS: BACTERIA,URINE Few /HPF (None Seen); SQUAMOUS EPITHELIAL CELL,UR Few /HPF (None Seen); WBC,URINE 0-2 /HPF (0-3)
--- NOTE | 2019-05-20 17:28 | NUR ---
CALLED FOR ICU BED.
[2019-05-20 17:29] LABS: THYROID STIMULATING HORMONE 13.47 uIU/mL (0.358-3.74)
[2019-05-20] MEDS ORDERED: DILTIAZEM HCL IV 125 MG in IV NS 0.9% 100 ML IV PRN (17:30)
--- NOTE | 2019-05-20 17:31 | NUR ---
CALLED [facility] DR. MCCALL
[2019-05-20 17:43] LABS: DIGOXIN 1.12 ng/mL (0.90-2.00)
--- NOTE | 2019-05-20 17:57 | NUR ---
CALLED [facility] AGAIN [phone].
[2019-05-20] MEDS ORDERED: ZOLPIDEM TARTRATE 5 MG TABLET PO PRN (19:00)
[2019-05-20] MEDS ORDERED: Z GUARD REMEDY 2 OZ OINT TP PRN (19:00)
[2019-05-20] MEDS ORDERED: *INSULIN REGULAR(HUMULIN R)HUM 100 UNIT/ML VIAL SQ PRN (19:00)
[2019-05-20] MEDS ORDERED: QUETIAPINE FUMARATE 25 MG TABLET PO PRN (19:00)
[2019-05-20] MEDS ORDERED: INSULIN REGULAR, HUMAN 100 UNIT/ML 3 ML VIAL SQ PRN (19:00)
[2019-05-20] MEDS ORDERED: ONDANSETRON HCL/PF 4 MG/2 ML VIAL IVP PRN (19:00)
[2019-05-20] MEDS ORDERED: MAGNESIUM HYDROXIDE 30 ML UDC PO PRN (19:00)
[2019-05-20] MEDS ORDERED: ACETAMINOPHEN 325 MG TABLET PO PRN (19:00)
[2019-05-20] MEDS ORDERED: MAG HYDROX/AL HYDROX/SIMETH 30 ML UDC PO PRN (19:00)
[2019-05-20] MEDS ORDERED: HYDROCODONE/APAP 5/325MG 1 EACH TABLET PO PRN (19:00)
[2019-05-20] MEDS ORDERED: DEXTROSE 50%-WATER 50 ML DISP.SYRIN IV PRN (19:00)
--- NOTE | 2019-05-20 19:14 | NUR ---
report given to lisa rn for venkatesh pt transported to icu via acls protocol
--- NOTE | 2019-05-20 19:30 | NUR ---
SUPERVISOR SUNGLASSES NOTE RECEIVED PT VIA GURNEY AND TRANSFERRED SAFELY TO BED WITH DAUGHTER AT BEDSIDE. A/O TO NAME. ON ROOM AIR AND SATURATING WELL. BREATHING UNLABORED. DENIES PAIN OR DISCOMFORT. RECEIVED WITH CARDIZEM DRIP INFUSING AT 15ML/HR. TELE- AFIB 120'S. BED ALARM ENABLED AND BED LOCKED IN PLACE. ORIENTED PT TO ROOM. CALL LIGHT WITHIN REACH. WILL MONITOR.
[2019-05-20] MEDS: DILTIAZEM HCL IV 125 MG in IV NS 0.9% 100 ML IV PRN (20:00)
--- NOTE | 2019-05-20 21:00 | NUR ---
BUZZLE BUFFER NOTE SPOKE WITH CURATOR OF COLLECTIONS DR ANDRADE WITH ORDERS FOR DIET 2GRAM CCHO AND TO CONTINUE CARDIZEM DRIP PER PROTOCOL. ORDERS NOTED AND CARRIED OUT.
[2019-05-20] MEDS: ATORVASTATIN 10 MG TABLET PO SCH (21:47)
[2019-05-20] MEDS: MIRTAZAPINE 15 MG TABLET PO SCH (21:47)
[2019-05-20] MEDS ORDERED: SIMVASTATIN 40 MG TABLET PO SCH (22:00)
[2019-05-20] MEDS: BLOOD SUGAR DIAGNOSTIC 1 EACH STRIP VI SCH (22:48)
[2019-05-21] VITALS (68 sets, daily range): BP systolic 70–169; BP diastolic 34–76
[2019-05-21] MEDS ORDERED: DILTIAZEM HCL 50 MG IV ONE (01:51)
[2019-05-21] MEDS ORDERED: DILTIAZEM HCL 25 MG IV ONE (01:53)
[2019-05-21] MEDS: DILTIAZEM HCL IV 125 MG in IV NS 0.9% 100 ML IV PRN (02:31)
[2019-05-21 04:23] LABS: BASOPHILS % (AUTO) 0.3 % (0.0-2.0); HEMATOCRIT 34 % (33-45); HEMOGLOBIN 11.3 g/dL (11.5-14.8); LYMPHOCYTES # (AUTO) 0.5 /CMM (0.8-4.8); LYMPHOCYTES % (AUTO) 4.4 % (20.0-44.0); MEAN CORPUSCULAR HGB CONC 33 g/dl (31.0-36.0); MEAN CORPUSCULAR VOLUME 91 fL (82-100); MONOCYTES # (AUTO) 0.8 /CMM (0.1-1.30); MONOCYTES % (AUTO) 7.7 % (2.0-12.0); NEUTROPHILS # (AUTO) 9.1 /CMM (1.8-8.9); NEUTROPHILS % (AUTO) 87.6 % (43.0-81.0); PLATELET COUNT (AUTO) 234 /CMM (150-450); RED BLOOD CELL COUNT(AUTO) 3.75 MIL/uL (4.0-5.2); WHITE BLOOD COUNT (AUTO) 10.4 K/uL (4.3-11.0)
[2019-05-21 04:41] LABS: CALCIUM, SERUM 8.9 mg/dL (8.5-10.1); MAGNESIUM 2.1 mg/dL (1.8-2.4); POTASSIUM 3.8 mmol/L (3.5-5.1)
--- NOTE | 2019-05-21 05:00 | NUR ---
VENEER MEASURER NOTE CARDIZEM IS ON HOLD. PT HR IN THE 70'S AFIB CONTROLLED. WILL MONITOR.
--- NOTE | 2019-05-21 07:04 | NUR ---
CASH SALES AUDIT CLERK NOTE PT REMAINED STABLE DURING SHIFT. NO ACUTE DISTRESS NOTED. ALL NEEDS ATTENDED TO PROMPTLY. CARDIZEM DRIP TURNED OFF @ 5AM WITH HR AFIB CONTROLLED 90'S. DENIES PAIN OR DISCOMFORT. BED ALARM ENABLED. BILATERAL SOFT WRIST RESTRAINTS OFF AT THIS TIME. PT COOPERATIVE AT THIS TIME. WILL ENDORSE TO NEXT SHIFT FOR CONTINUITY OF CARE.
[2019-05-21] MEDS ORDERED: LEVOTHYROXINE SODIUM 88 MCG TABLET PO SCH (07:30)
[2019-05-21] MEDS: LOSARTAN POTASSIUM 50 MG TABLET PO SCH ×2 (08:38→09:00)
[2019-05-21] MEDS: ATENOLOL 25 MG TABLET PO SCH ×2 (08:38→09:00)
[2019-05-21] MEDS: METFORMIN 500 MG TABLET PO SCH ×2 (08:39→16:00)
[2019-05-21] MEDS: LINAGLIPTIN 5 MG TABLET PO SCH ×2 (08:39→09:00)
[2019-05-21] MEDS: BLOOD SUGAR DIAGNOSTIC 1 EACH STRIP VI SCH ×4 (08:39→22:12)
--- NOTE | 2019-05-21 08:46 | NUR ---
RN NOTE 0715: Received patient lethargic. Afib 90's controlled on the monitor. With PIVs intact. Off Cardizem. Will continue to monitor. 0800: S/E by Dr. Kiran, may downgrade to tele per MD, made CN aware. 0845: No any significant changes noted. Remained lethargic/drowsy.
[2019-05-21] MEDS ORDERED: glipiZIDE 5 MG TABLET PO SCH (09:00)
[2019-05-21] MEDS ORDERED: predniSONE 1 MG TABLET PO SCH (09:00)
--- NOTE | 2019-05-21 09:20 | NUR ---
RN NOTE S/E by Dr. Lopez, cardio and held downgrade. Per MD patient is really lethargic and very different from last time he saw her. Patient's abdomen is squeegee tender and painful during palpation. Made Dr. Kiran aware.
--- NOTE | 2019-05-21 12:30 | NUR ---
RN NOTE Spoke with Valeria Arroyo NP re: GI consult. Made VENETIAN BLIND ASSEMBLER aware re: abdominal tenderness and painful during palpation. Still lethargic and noted with minimal possible gastric residual, with coffee ground. , new orders carried out, US abd and labs stat, Protonix BID, NPO and Sx consult. Contacted Dr. Reyes again, per Sx, he is in a middle of procedure, left them the room number of the consult, said they will inform MD. Daughter, Livier at bedside, verified that patient is DNR/DNI, made MD aware. She consent for blood transfusion if needed.
[2019-05-21] MEDS: PANTOPRAZOLE 40 MG VIAL IV SCH ×2 (12:43→22:03)
[2019-05-21 13:00] LABS: BASOPHILS % (AUTO) 0.1 % (0.0-2.0); HEMATOCRIT 37 % (33-45); LYMPHOCYTES # (AUTO) 0.5 /CMM (0.8-4.8); LYMPHOCYTES % (AUTO) 6.9 % (20.0-44.0); MEAN CORPUSCULAR HGB CONC 33 g/dl (31.0-36.0); MEAN CORPUSCULAR VOLUME 90 fL (82-100); MONOCYTES # (AUTO) 1.1 /CMM (0.1-1.30); MONOCYTES % (AUTO) 15.7 % (2.0-12.0); NEUTROPHILS # (AUTO) 5.3 /CMM (1.8-8.9); NEUTROPHILS % (AUTO) 77.3 % (43.0-81.0); PLATELET COUNT (AUTO) 236 /CMM (150-450); RED BLOOD CELL COUNT(AUTO) 4.05 MIL/uL (4.0-5.2); WHITE BLOOD COUNT (AUTO) 6.9 K/uL (4.3-11.0)
[2019-05-21] MEDS ORDERED: DIGOXIN 0.125 MG TABLET PO SCH (13:00)
[2019-05-21] MEDS ORDERED: DIGOXIN INJ 0.5 MG/2 ML AMPUL IV ONE (13:00)
[2019-05-21 14:47] LABS: NEUTROPHILS % (MANUAL) 43 (42-76)
[2019-05-21 14:48] LABS: BAND % (MANUAL) 30 % (0.0-5.0); LYMPHOCYTES % (MANUAL) 10 % (16-48); METAMYELOCYTES % 1 % (0-0); MONOCYTES % (MANUAL) 16 % (0-11.0)
[2019-05-21] MEDS ORDERED: IV NS 0.9% 500 ML IV ONE (15:00)
[2019-05-21] MEDS ORDERED: PHENYLEPHRINE 20 MG in IV D5W 250 ML IV PRN (15:00)
[2019-05-21] MEDS ORDERED: *INSULIN REGULAR(HUMULIN R)HUM 100 UNIT/ML VIAL SQ PRN (16:00)
[2019-05-21] MEDS ORDERED: INSULIN REGULAR, HUMAN 100 UNIT/ML 3 ML VIAL SQ PRN (16:00)
[2019-05-21] MEDS ORDERED: DEXTROSE 50%-WATER 50 ML DISP.SYRIN IV PRN (16:00)
[2019-05-21] MEDS: PHENYLEPHRINE 20 MG in IV D5W 250 ML IV PRN ×2 (16:44→21:16)
[2019-05-21] MEDS ORDERED: IV NS 0.9% 250 ML IV ONE (16:47)
[2019-05-21] MEDS ORDERED: CT SWABBABLE VALVE TRANS SET 1 EA INFUS.SET MC ONE (16:47)
[2019-05-21] MEDS ORDERED: IOHEXOL-300 100 ML VIAL IV ONE (16:47)
[2019-05-21] MEDS ORDERED: WARFARIN SODIUM 2 MG TABLET PO SCH (17:00)
[2019-05-21] MEDS ORDERED: HYDROCORTISONE SOD SUCCINATE 100 MG/2 ML VIAL IV SCH (17:00)
--- NOTE | 2019-05-21 17:21 | NUR ---
Readmitted in two weeks due to rapid A-fib , ICU LOC melvi gtt was held, currently on pressor due to low B/P. She lives at home with her daughter and her family. Prior to admission, she was walking with a walker and semi-independent with adl's. Was on homehealth but does not have the contact info. Has [employer]: walker, grab bars and shower chair. She has good family support. Will assist family with dc planning needs. Addendum: 05/21/19 at 4465 by PAMELA FUENTES RN Amended: Links added.
--- NOTE | 2019-05-21 18:36 | NUR ---
RN NOTE 174: Received call from Radio re: result of CT head, left cerebellum poss infarct. Called Dr. Kiran's office, paged. 175: Called MD highway traffic control technician again, Dr. Salcedo called back and said to inform Neuro. Informed Dr. Mao, left message. 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 Called GI, Valeria aware, informed Nickie Traore said she will help on getting a hold for Dr. Reyes. Awaiting call back from MD Traore and neuro. Daughter at bedside aware for the results.
--- NOTE | 2019-05-21 18:53 | NUR ---
RN NOTE Spoke with Dr. Mao, made aware for the result of CT head.
--- NOTE | 2019-05-21 18:55 | NUR ---
RN NOTE Called Dr. Reyes again, unable to leave message on his phone, and office phone.
--- NOTE | 2019-05-21 19:30 | NUR ---
RN NOTE: RECEIVED PT ON BED OBTUNDED, RESPONDS TO PAINFUL STIMULI ONLY. ON ROOM AIR, NO SOB NOTED AT THIS TIME. SATURATING WELL. FAMILY AND DR. AGUILLON AT BEDSIDE. ON TELE MONITOR AFIB CONTROLLED HR 99 BPM. RIGHT UPPER ARM PICC LINE INTACT AND PATENT, ANJEL DRIP INCREASED TO 100MCG/MIN PER PROTOCOL. KEPT CLEAN, DRY AND COMFORTABLE. SAFETY AND FALL PRECAUTIONS OBSERVED AND MAINTAINED. WILL CONTINUE TO MONITOR PT.
--- NOTE | 2019-05-21 19:36 | NUR ---
RN NOTE 1909: Dr. Reyes paged from ER. 1914: Dr. Reyes came and S/E patient, family at bedside. Spoke with Dr. Mao and waiting for plan of Sx. 1919: Dr. Reyes and Dr. Mao (on phone) on conference with family at the room. Endorsed care to Lupe MCPHERSON.
--- NOTE | 2019-05-21 19:40 | NUR ---
RN NOTE: DR. AGUILLON AT BEDSIDE. PER MD PATIENT NEEDS TO BE TRANSFERRED TO [facility] FOR INTERVENTIONAL RADIOLOGY CHRIS. CALLED PATIENT BILLER (PAMELA) BUT NO ANSWER. NURSING PRIVATE EQUITY ANALYST NOTIFIED.
--- NOTE | 2019-05-21 20:15 | NUR ---
per GI, patient will need higher level of care transfer for IR due to occlusive thrombus of proximal mesenteric artery. Spoke with [employer] field talent qualification specialist- patient primary will be Dr. Salcedo/ Cel[facility]. Patient is currently unresponsive and on neosynephrine gtt. Family is updated Addendum: 05/21/19 at 2136 by PAMELA FUENTES RN Amended: Links added.
--- NOTE | 2019-05-21 21:09 | NUR ---
RN NOTE: SPOKE WITH DR. MCCALL, PER MD PT NEEDS TO BE TRANSFERRED TO [facility] FOR IR DECLOT ON MESENTERIC ARTERY. LAUNCH OPERATOR AWARE. FAMILY AT BEDSIDE, UPDATED WITH PLAN OF CARE. WILL CONTINUE TO MONITOR PT.
--- NOTE | 2019-05-21 21:10 | NUR ---
Referral sent to [facility] [phone], [facility] will need to f/u in am. Referral to Kellen Brand at transfer ctr [phone] case will be reviewed. [facility] [phone]- they are at full capacity and was advised to call in am. Lynne does not do emergency IR per Petros. Addendum: 05/21/19 at 2142 by PAMELA FUENTES RN Amended: Links added.
[2019-05-21] MEDS: MIRTAZAPINE 15 MG TABLET PO SCH (22:00)
[2019-05-21] MEDS ORDERED: SIMVASTATIN 10 MG TABLET PO SCH (22:00)
[2019-05-21] MEDS: ATORVASTATIN 10 MG TABLET PO SCH (22:00)
--- NOTE | 2019-05-21 22:03 | NUR ---
[phone] patient tonight as there is no ICU bed is available. Addendum: 05/21/19 at 2203 by PAMELA FUENTES RN Amended: Links added.
--- NOTE | 2019-05-21 23:48 | NUR ---
Received a call from Cinthia at [facility] transfer ctr [phone], medical records was faxed as requested, case is being reviewed by [facility] ICU physician. Cinthia stated that [facility] is currently at full capacity and will contact nurse station if bed becomes available. Spoke with daughter Livier- made aware of current status of the transfer process. Left message to as well. Addendum: 05/21/19 at 2351 by PAMELA FUENTES RN Amended: Links added.
[2019-05-22] VITALS (36 sets, daily range): BP systolic 44–132; BP diastolic 25–90
[2019-05-22] MEDS: PIPERACILLIN /TAZOBACTAM 3.375 G in IV D5W 50 ML IV SCH ×2 (00:15→05:16)
[2019-05-22] MEDS ORDERED: PHENYLEPHRINE 10 MG/ML VIAL ONE (00:29)
[2019-05-22] MEDS ORDERED: PHENYLEPHRINE 80 MG in IV D5W 250 ML IV PRN ×4 (00:30)
[2019-05-22 05:03] LABS: BASOPHILS % (AUTO) 0.1 % (0.0-2.0); EOSINOPHILS % (AUTO) 0.1 % (0.0-6.0); HEMATOCRIT 38 % (33-45); HEMOGLOBIN 12.3 g/dL (11.5-14.8); LYMPHOCYTES # (AUTO) 0.5 /CMM (0.8-4.8); LYMPHOCYTES % (AUTO) 6.3 % (20.0-44.0); MEAN CORPUSCULAR HGB CONC 32 g/dl (31.0-36.0); MEAN CORPUSCULAR VOLUME 93 fL (82-100); MONOCYTES # (AUTO) 0.6 /CMM (0.1-1.30); MONOCYTES % (AUTO) 7.9 % (2.0-12.0); NEUTROPHILS # (AUTO) 6.8 /CMM (1.8-8.9); NEUTROPHILS % (AUTO) 85.6 % (43.0-81.0); PLATELET COUNT (AUTO) 229 /CMM (150-450); WHITE BLOOD COUNT (AUTO) 7.9 K/uL (4.3-11.0)
[2019-05-22 05:17] LABS: ALANINE AMINOTRANSFERASE 708 U/L (12-78); ALBUMIN 2.5 g/dL (3.4-5.0); ALKALINE PHOSPHATASE 53 U/L (46-116); ASPARTATE AMINOTRANSFERASE 851 U/L (15-37); BILIRUBIN,TOTAL 0.9 mg/dL (0.2-1.0); CALCIUM, SERUM 7.9 mg/dL (8.5-10.1); CARBON DIOXIDE 11 mmol/L (21-32); CHLORIDE 106 mmol/L (98-107); CREATININE 3.7 mg/dL (0.6-1.3); GLUCOSE 122 mg/dL (74-106); MAGNESIUM 1.6 mg/dL (1.8-2.4); PHOSPHORUS 5.9 mg/dL (2.5-4.9); POTASSIUM 5.5 mmol/L (3.5-5.1); SODIUM SERUM 138 mmol/L (136-145); UREA NITROGEN, BLOOD 60 mg/dL (7-18)
[2019-05-22 06:05] LABS: BAND % (MANUAL) 32 % (0.0-5.0); LYMPHOCYTES % (MANUAL) 6 % (16-48); METAMYELOCYTES % 2 % (0-0); MONOCYTES % (MANUAL) 14 % (0-11.0); NEUTROPHILS % (MANUAL) 46 (42-76)
--- NOTE | 2019-05-22 06:08 | NUR ---
RN NOTE: PT NOTED TO HAVE AGONAL BREATHING. BP 70/51 AT THIS TIME, ANJEL GTT INCREASED PER PROTOCOL. DAUGHTER MANE MADE AWARE.
--- NOTE | 2019-05-22 06:20 | NUR ---
RN NOTE: BP 86/41, ANJEL GTT TITRATED UP TO 300MCG/MIN. PAGED TRANSMITTER OPERATOR DR. DAWSON, STILL AWAITING FOR CALL BACK.
[2019-05-22] MEDS ORDERED: NOREPINEPHRINE 4 MG/4 ML AMPUL IV ONE (06:33)
[2019-05-22] MEDS ORDERED: NOREPINEPHRINE 16 MG in IV D5W 500 ML IV PRN (07:00)
--- NOTE | 2019-05-22 07:05 | NUR ---
rn note received pt on bed, obtunded, daughter at bedside, per mini shifter report pt is dying. low respirations, rr 10bpm bp in 70s, heart is V pacing 60 on bedside monitor.
--- NOTE | 2019-05-22 07:08 | NUR ---
PATIENT WITH AGONAL RHYTHM-ASYSTOLE. NO PALPABLE PULSES. NO HEART TONE AUSCULATED. NO SPONTANEOUS RESPIRATION. PUPILS FIXED AND DILATED. PATIENT DAUGHTER AT BEDSIDE. PATIENT DNR/DNI. PRONOUNCED AT 0708.
--- NOTE | 2019-05-22 07:12 | NUR ---
RN NOTE: [facility] CALLED, SPOKE TO RIYA Josue CASE # [id number].
--- NOTE | 2019-05-22 07:18 | NUR ---
rn note at 0708 pt DNR/DNI , daughter at bedside, Dr Romero aware.
--- NOTE | 2019-05-22 07:24 | NUR ---
rn note spoke with Hardik, answering service of Dr Salcedo's office to relay message to DR Salcedo regarding pt .
--- NOTE | 2019-05-22 09:20 | NUR ---
rn note pt's body released to [facility]ese Tamayo [facility], phone number [phone].
== END 2019-05-22 09:55 | disposition expired | DRG 871 ==
LOC: ER 15:58 → ICU 18:41
PROVIDERS: ADMIT Student in an Organized Health Care Education/Training Program; ATTEND Student in an Organized Health Care Education/Training Program
PROC: 02HV33Z Insertion of Infusion Device into Superior Vena Cava, Percutaneous Approach (ICD-10-PCS; principal; 2019-05-21)
PROC: B548ZZA Ultrasonography of Superior Vena Cava, Guidance (ICD-10-PCS; 2019-05-21)
DX: A41.9 Sepsis, unspecified organism (principal); G93.41 Metabolic encephalopathy; N17.0 Acute kidney failure with tubular necrosis; K63.1 Perforation of intestine (nontraumatic); E87.2 Acidosis; J90 Pleural effusion, not elsewhere classified; I48.91 Unspecified atrial fibrillation; E11.65 Type 2 diabetes mellitus with hyperglycemia; E86.0 Dehydration; I10 Essential (primary) hypertension; I25.10 Atherosclerotic heart disease of native coronary artery without angina pectoris; Z79.01 Long term (current) use of anticoagulants; Z95.0 Presence of cardiac pacemaker; Z90.49 Acquired absence of other specified parts of digestive tract; E78.5 Hyperlipidemia, unspecified; E03.9 Hypothyroidism, unspecified; Z79.84 Long term (current) use of oral hypoglycemic drugs; Z79.899 Other long term (current) drug therapy; K57.30 Diverticulosis of large intestine without perforation or abscess without bleeding; D64.9 Anemia, unspecified; M35.3 Polymyalgia rheumatica; K29.70 Gastritis, unspecified, without bleeding; Z66 Do not resuscitate; Z86.19 Personal history of other infectious and parasitic diseases; Z87.11 Personal history of peptic ulcer disease; I07.1 Rheumatic tricuspid insufficiency
CPT/HCPCS: 36415; 70450-TC; 71045-TC; 74018; 76700-TC; 80048-TC; 80053-TC; 80061-TC; 80076-TC; 80162-TC; 81000-TC; 82962-TC; 83605-TC; 83690-TC; 83735-TC; 84100-TC; 84439-TC; 84443-TC; 84484-TC; 85025-TC; 85378-TC; 85610-TC; 85730-TC; 87081-TC; 93970-TC; A6403; C1751; C9113; G0378; J1160; J1720; J1815; J2370; J2405; J2543; J3490; J7030; J7040; J7050; J7060; J7512; Q9967